=== PATIENT | female | born 1990 | race Caucasian/White ===

== ENCOUNTER 2016-08-11 16:00 | Emergency (ER) | payer OTHER ==
[~2016-08-11] VITALS: Ht 165.1 cm; Wt 70.5 kg
[~2016-08-11 16:00] MED LIST: ADDERALL30 MG PO; BIRTH CONTROL PO; DUO-KAPS1 CAP PO; LEVAQUIN 750MG750 M1 PO; ORTHO TRI-CYCLE1 TA2 PO; PERCOCET 325 MG1 TA2 PO; PRENATAL1 TA1 PO; RITALIN LA30 MG PO
[2016-08-11 16:02] VITALS: TEMP 98.5
[2016-08-11] MEDS ORDERED: PRENATAL PO (16:05)
[2016-08-11 18:47] LABS: BASO % 0.1 % (0.0-2.0); EOS # 0.1 (0.0-0.7); EOS % 0.7 % (0-4.0); GRAN % 78.5 % (42.2-75.2); HEMATOCRIT 37.8 % (37.0-47.0); HEMOGLOBIN 12.5 g/dl (12.5-16.0); LYMPH # 1.1 (1.2-3.4); LYMPH % 12.7 % (20.0-51.0); MEAN CELL VOLUME 83 fl (80.0-100.0); MEAN CORPUSCULAR HEMOGLOBIN 28 pg (27.0-31.0); MEAN CORPUSCULAR HGB CONC 33 g/dl (33.0-37.0); MEAN PLATELET VOLUME 10.5 fl (7.4-10.4); MONO # 0.7 (0.1-0.6); MONO % 7.7 % (1.7-9.3); PLATELET COUNT 196 K/mm3 (130-400); RED BLOOD COUNT 4.53 M/mm3 (4.10-5.30); REDCELL DISTRIBUTION WIDTH-CV 13.2 % (11.5-14.5); WHITE BLOOD COUNT 8.9 K/mm3 (4.8-10.8)
[2016-08-11 18:55] LABS: ADJUSTED CALCIUM 8.9 mg/dL (8.4-10.2); ALBUMIN 4.3 gm/dL (3.5-5.0); BILIRUBIN,TOTAL 1.1 mg/dL (0.0-1.0); C-REACTIVE PROTEIN 2.5 mg/dL (0.0-0.9); CALCIUM 9.1 mg/dL (8.4-10.2); CREATININE, serum 0.59 mg/dL (0.52-1.25); POTASSIUM 3.5 mmol/L (3.4-5.0); TOTAL PROTEIN 7.8 gm/dL (6.4-8.2)
[2016-08-11 19:37] LABS: PH 5 (5-8); URINE APPEARANCE Hazy; URINE BACTERIA None Seen /hpf; URINE BILIRUBIN Negative (NEGATIVE); URINE BLOOD Negative (NEGATIVE); URINE COLOR Yellow; URINE GLUCOSE Negative (NEGATIVE); URINE KETONE Negative (NEGATIVE); URINE RBC 0-2 /hpf; URINE UROBILINOGEN Negative (NEGATIVE)
[2016-08-11 19:54] VITALS: BP 131/62; PULSE 72
== END 2016-08-11 19:58 | disposition home or self-care (01) ==
LOC: COL.ER 16:00
PROVIDERS: Physician Assistant
DX: O98.511 Other viral diseases complicating pregnancy, first trimester (principal); A08.4 Viral intestinal infection, unspecified; Z3A.09 9 weeks gestation of pregnancy
CPT/HCPCS: J7030

== ENCOUNTER 2017-03-16 20:55 | Inpatient (IN) | payer OTHER ==
[2017-03-16] VITALS (12 sets, daily range): BP systolic 110–125; BP diastolic 60–80; PULSE 57–72; TEMP 97.9
[~2017-03-16] VITALS: Ht 167.6 cm; Wt 84.5 kg
[~2017-03-16 20:55] MED LIST changes: +PRENATAL PO
[2017-03-16 21:29] LABS: BASO % 0.3 % (0.0-2.0); EOS # 0.1 (0.0-0.7); EOS % 1.2 % (0-4.0); GRAN # 8.5 (1.4-6.5); GRAN % 71.3 % (42.2-75.2); HEMATOCRIT 37.1 % (37.0-47.0); HEMOGLOBIN 12.3 g/dl (12.5-16.0); LYMPH # 2.2 (1.2-3.4); LYMPH % 18.5 % (20.0-51.0); MEAN CELL VOLUME 87 fl (80.0-100.0); MEAN CORPUSCULAR HEMOGLOBIN 29 pg (27.0-31.0); MEAN CORPUSCULAR HGB CONC 33 g/dl (33.0-37.0); MEAN PLATELET VOLUME 10.1 fl (7.4-10.4); MONO % 8.3 % (1.7-9.3); PLATELET COUNT 195 K/mm3 (130-400); RED BLOOD COUNT 4.25 M/mm3 (4.10-5.30)
[2017-03-17] VITALS (14 sets, daily range): BP systolic 99–128; BP diastolic 53–72; PULSE 55–78; TEMP 97.4–98.4
[2017-03-18 07:30] VITALS: BP 113/68; PULSE 78; TEMP 98.1
[2017-03-18] MEDS ORDERED: IBU600 MG PO (08:58)
[2017-03-18] MEDS ORDERED: PERCOCET 325 MG1 TA2 PO (08:59)
== END 2017-03-18 11:10 | disposition home or self-care (01) | DRG 775 ==
LOC: LDRO 20:55 → LDR 21:03 → OB 21:03 → LDRO 03-20 16:34
PROVIDERS: Obstetrics & Gynecology
PROC: 0HQ9XZZ Repair Perineum Skin, External Approach (ICD-10-PCS; principal; 2017-03-16)
PROC: 10E0XZZ Delivery of Products of Conception, External Approach (ICD-10-PCS; 2017-03-16)
DX: O70.0 First degree perineal laceration during delivery (principal); Z3A.39 39 weeks gestation of pregnancy; Z37.0 Single live birth
CPT/HCPCS: J2590; J2795; J7120

== ENCOUNTER → 2017-07-16 | Outpatient (CLI) | payer OTHER ==
[~2017-07-16] MED LIST changes: +IBU600 MG PO
== END ==
LOC: BHSO 10:26
DX: F90.0 Attention-deficit hyperactivity disorder, predominantly inattentive type (principal)
CPT/HCPCS: G0463

== ENCOUNTER 2017-08-27 19:13 | Emergency (ER) | payer OTHER ==
[~2017-08-27] VITALS: Ht 165.1 cm; Wt 68.2 kg
[2017-08-27 19:17] VITALS: BP 146/90; TEMP 98.6
[2017-08-27] MEDS ORDERED: ADDERALL10 MG PO (19:19)
[2017-08-27] MEDS ORDERED: FLEXERIL 1010 MG/TAB PO (20:19)
[2017-08-27 20:35] VITALS: PULSE 78
== END 2017-08-27 20:37 | disposition home or self-care (01) ==
LOC: COL.ER 19:13
DX: S16.1XXA Strain of muscle, fascia and tendon at neck level, initial encounter (principal); J45.909 Unspecified asthma, uncomplicated; F41.9 Anxiety disorder, unspecified; V43.52XA Car driver injured in collision with other type car in traffic accident, initial encounter; Z87.891 Personal history of nicotine dependence
CPT/HCPCS: J1885; J2360

== ENCOUNTER → 2018-03-12 | Outpatient (CLI) | payer OTHER ==
[~2018-03-12] MED LIST changes: +ADDERALL10 MG PO; +FLEXERIL 1010 MG/TAB PO
== END ==
LOC: MC.RAD 08:30
DX: N64.4 Mastodynia (principal)

== ENCOUNTER 2018-05-06 17:40 | Emergency (ER) | payer OTHER ==
[~2018-05-06] VITALS: Ht 165.1 cm; Wt 63.6 kg
[2018-05-06 17:45] VITALS: TEMP 99.7
[2018-05-06 18:51] LABS: COLLECTION METHOD CLEAN CATCH
[2018-05-06 19:09] LABS: MUCOUS Present /lpf; PH 5 (5-8); SQUAMOUS EPITHELIAL 20-50 /hpf; URINE APPEARANCE Cloudy; URINE BACTERIA Rare /hpf; URINE BILIRUBIN Negative (NEGATIVE); URINE BLOOD Negative (NEGATIVE); URINE COLOR Amber; URINE GLUCOSE Negative (NEGATIVE); URINE KETONE Negative (NEGATIVE); URINE LEUKOCYTE ESTERASE 1+ (NEGATIVE); URINE NITRATE Negative (NEGATIVE); URINE PROTEIN(semi-quant) 2+ (NEGATIVE); URINE UROBILINOGEN Negative (NEGATIVE)
[2018-05-06 19:57] LABS: BASO % 0.2 % (0.0-2.0); GRAN # 3.5 (1.4-6.5); GRAN % 81.1 % (42.2-75.2); HEMATOCRIT 46.6 % (37.0-47.0); HEMOGLOBIN 15.3 g/dl (12.5-16.0); LYMPH # 0.5 (1.2-3.4); LYMPH % 11.6 % (20.0-51.0); MEAN CELL VOLUME 85 fl (80.0-100.0); MEAN CORPUSCULAR HEMOGLOBIN 28 pg (27.0-31.0); MEAN CORPUSCULAR HGB CONC 33 g/dl (33.0-37.0); MEAN PLATELET VOLUME 10.8 fl (7.4-10.4); MONO # 0.3 (0.1-0.6); MONO % 6.9 % (1.7-9.3); PLATELET COUNT 168 K/mm3 (130-400); RED BLOOD COUNT 5.51 M/mm3 (4.10-5.30); REDCELL DISTRIBUTION WIDTH-CV 12.1 % (11.5-14.5)
[2018-05-06 20:13] LABS: COLLECTION METHOD CLEAN CATCH
[2018-05-06 20:15] LABS: ALBUMIN 4.9 gm/dL (3.5-5.0); BILIRUBIN,TOTAL 0.8 mg/dL (0.0-1.0); CALCIUM 9.5 mg/dL (8.4-10.2); CREATININE, serum 0.81 mg/dL (0.52-1.25); POTASSIUM 3.7 mmol/L (3.4-5.0)
[2018-05-06] MEDS ORDERED: ZOFRAN ODT4 MG PO (20:28)
[2018-05-06 20:46] LABS: MUCOUS Present /lpf; PH 5 (5-8); URINE APPEARANCE Hazy; URINE BACTERIA Rare /hpf; URINE BILIRUBIN Negative (NEGATIVE); URINE BLOOD Negative (NEGATIVE); URINE COLOR Yellow; URINE GLUCOSE Negative (NEGATIVE); URINE KETONE 1+ (NEGATIVE); URINE LEUKOCYTE ESTERASE Negative (NEGATIVE); URINE NITRATE Negative (NEGATIVE); URINE PROTEIN(semi-quant) 1+ (NEGATIVE); URINE RBC 0-2 /hpf; URINE UROBILINOGEN Negative (NEGATIVE)
[2018-05-06] MEDS ORDERED: MACROBID 1100 MG/CAP PO (20:53)
[2018-05-06 21:12] VITALS: BP 121/84; PULSE 96
== END 2018-05-06 21:12 | disposition home or self-care (01) ==
LOC: COL.ER 17:40
PROVIDERS: Physician Assistant
DX: K52.9 Noninfective gastroenteritis and colitis, unspecified (principal); N39.0 Urinary tract infection, site not specified
CPT/HCPCS: J2405; J7030

== ENCOUNTER → 2018-09-01 | Outpatient (CLI) | payer OTHER ==
[~2018-09-01] MED LIST changes: +MACROBID 1100 MG/CAP PO; +ZOFRAN ODT4 MG PO
== END ==
LOC: MC.RAD 12:52
DX: N64.4 Mastodynia (principal)

== ENCOUNTER → 2020-02-07 | Outpatient (CLI) | payer OTHER | LOC: MC.RAD 12:59 | DX: N63.11 Unspecified lump in the right breast, upper outer quadrant (principal) ==

== ENCOUNTER → 2020-08-15 | Outpatient (CLI) | payer OTHER | LOC: MC.RAD 12:47 | DX: N64.4 Mastodynia (principal); Z80.3 Family history of malignant neoplasm of breast ==

== ENCOUNTER 2021-06-26 16:44 | Emergency (ER) | payer OTHER ==
[~2021-06-26] VITALS: Ht 165.1 cm; Wt 70.5 kg
[2021-06-26 17:00] VITALS: TEMP 98.1
[2021-06-26 17:31] LABS: BASO % 0.3 % (0.0-2.0); EOS # 0.1 K/mm3 (0.0-0.7); EOS % 1.2 % (0.0-4.0); GRAN # 4.6 K/mm3 (1.4-6.5); GRAN % 62.7 % (42.2-75.2); HEMATOCRIT 40.6 % (37.0-47.0); HEMOGLOBIN 13.1 g/dl (12.5-16.0); LYMPH # 2.1 K/mm3 (1.2-3.4); LYMPH % 28.6 % (20.0-51.0); MEAN CELL VOLUME 84 fl (80.0-100.0); MEAN CORPUSCULAR HEMOGLOBIN 27 pg (27-31); MEAN CORPUSCULAR HGB CONC 32 g/dl (33.0-37.0); MEAN PLATELET VOLUME 9.8 fl (7.4-10.4); MONO # 0.5 K/mm3 (0.1-0.6); MONO % 6.9 % (1.7-9.3); PLATELET COUNT 263 K/mm3 (130-400); RED BLOOD COUNT 4.85 M/mm3 (4.10-5.30); REDCELL DISTRIBUTION WIDTH-CV 11.9 % (11.5-14.5)
[2021-06-26 17:50] LABS: ALBUMIN 4.4 gm/dL (3.5-5.0); BILIRUBIN,TOTAL 0.7 mg/dL (0.2-1.2); CALCIUM 9.7 mg/dL (8.4-10.2); CREATININE, serum 1.02 mg/dL (0.57-1.11); POTASSIUM 3.9 mmol/L (3.5-4.5)
[2021-06-26] MEDS ORDERED: PROAIR HFA0.09 MG/AC IH (18:00)
[2021-06-26 18:18] VITALS: BP 114/80; PULSE 87
== END 2021-06-26 18:18 | disposition home or self-care (01) ==
LOC: COL.ER 16:44
PROVIDERS: Nurse Practitioner Primary Care
DX: J45.909 Unspecified asthma, uncomplicated (principal); Z86.16 Personal history of COVID-19

== ENCOUNTER 2022-07-29 21:42 | Emergency (ER) | payer OTHER ==
[~2022-07-29] VITALS: Ht 165.1 cm; Wt 72.7 kg
[~2022-07-29 21:42] MED LIST changes: +PROAIR HFA0.09 MG/AC IH
[2022-07-29 21:58] VITALS: BP 135/85; TEMP 102.7
[2022-07-29 22:45] VITALS: PULSE 102
== END 2022-07-29 22:45 | disposition home or self-care (01) ==
LOC: COL.ER 21:42
DX: J11.1 Influenza due to unidentified influenza virus with other respiratory manifestations (principal)

== ENCOUNTER → 2023-02-18 | Outpatient (CLI) | payer OTHER | LOC: MC.RAD 13:45 | DX: N64.4 Mastodynia (principal) ==